=== PATIENT | female | born 1940 | race Caucasian/White ===

== ENCOUNTER 2016-09-29 21:02 | Inpatient (IN) | payer MEDICARE ==
[~2016-09-29 21:02] MED LIST: AMOXIL500 MG PO; ARICEPT10 M2 PO; ASPIRIN325 MG; BAYER CHEWABLE81 M2 PO; BISACODYL10 M1 PR; CARBIDOPA; CARBIDOPA-LE1 TAB.SA; CARBIDOPA-LEVO1 EA11 PO; CELEBREX200 M1 PO; CELEBREX200 MG PO; CIPRO250 MG PO; COUMADIN5 MG PO; DARVOCET-N 1001 TAB PO; FISH OIL1 CAP; FLEET ENEMA133 ML PR; HYDROCHLOROTHIA25 M1 PO; IMODIUM2 MG PO; LEVAQUIN750 M1 PO; MACROBID 100 M100 M1 PO; MIDODRINE HCL5 M1 PO; MILK OF MAGNESIA PO; MIRAPEX0.25 M1 PO; MIRAPEX0.25 MG; MIRAPEX0.5 MG; MIRAPEX0.5 MG PO; NAMENDA10 MG; NEURONTIN100 M1 PO; NIACIN100 MG; NORCO 5/325 TAB1 TAB; NYSTOP60 GM TP; OMEPRAZOLE20 M2 PO; OMEPRAZOLE20 M3 PO; SINEMET CR 50-1 EACH PO; SINEMET ER 50/21 TA1 PO; TYLENOL325 M2 PO; TYLENOL650 MG PO; ULTRAM50 M1 PO; VIBERZI75 MG PO; ZEGERID 40 MG C1 CAP; ZETIA10 MG; ZOFRAN ODT4 MG/UDTAB PO; ZOFRAN4 MG PO; [UNRECOGNIZED DRUG - OTHER]; [UNRECOGNIZED DRUG - OTHER]
[2016-09-29] MEDS ORDERED: CELEBREX200 M1 PO (21:30)
[2016-09-29] MEDS ORDERED: OMEPRAZOLE20 M3 PO (21:31)
[2016-09-29] MEDS ORDERED: ZYRTEC1010 PO (21:33)
[2016-09-29] MEDS ORDERED: VITAMIN D31000 UNI3 PO (21:35)
[2016-09-29] MEDS ORDERED: NUDEXTA PO (21:35)
[2016-09-29] MEDS ORDERED: ASPIRIN81 M1 PO (21:36)
[2016-09-29 22:13] LABS: URINE BILIRUBIN MODERATE (NEG); URINE BLOOD SMALL (NEG); URINE GLUCOSE (UA) NEGATIVE (NEG); URINE KETONE MODERATE (NEG); URINE LEUKOCYTE ESTERASE POSITIVE (NEG); URINE NITRITE POSITIVE (NEG); URINE PROTEIN SMALL (NEG); URINE SPECIFIC GRAVITY 1.025 (1.003-1.030)
[2016-09-29 22:16] LABS: BASO % 0.2 % (0-2); EOS % 0.7 % (0-7); HCT-HEMATOCRIT 37.9 % (34.0-49.0); HGB-HEMOGLOBIN 12.3 gm/dl (12.0-15.5); IMMATURE GRANULOCYTES ABSOLUTE 0.01 tho/cmm (0-0.03); IMMATURE GRANULOCYTES PERCENT 0.2 % (0-0.3); LYMPH % 20.1 % (20-45); LYMPH ABSOLUTE COUNT 1.2 tho/cmm (0.8-4.5); MCH (MEAN CORPUSCULAR HGB) 27.6 pg (28.0-32.0); MCHC MEAN CORPUSCULAR HGB CONC 32.5 % (32.0-36.0); MEAN PLATELET VOLUME 9.7 cmc (9.4-12.4); MONO % 8.5 % (0-12); MONOCYTE ABSOLUTE COUNT 0.5 tho/cmm (0.0-1.2); NEUTROPHIL ABSOLUTE COUNT 4.1 tho/cmm (1.6-8.0); NEUTROPHIL-AUTOMATED 4.1 tho/cmm (1.6-8.0); NEUTROPHILS % 70.3 % (40-80); PLATELET COUNT 174 tho/cmm (150-450); RED BLOOD COUNT 4.46 mil/cmm (4.00-5.20); RED CELL DISTRIBUTION WIDTH 13.9 % (12.4-16.4); WHITE BLOOD COUNT 5.9 tho/cmm (4.0-10.0)
[2016-09-29 22:24] LABS: URINE APPEARANCE CLOUDY; URINE COLOR YELLOW
[2016-09-29 22:27] LABS: URINE RBC 0-1 /[HPF] (0-5); URINE WBC 40-50 /[HPF] (0-5)
[2016-09-29 22:28] LABS: URINE BACTERIA 3+; URINE EPITHELIAL CELLS 0-1 /[HPF] (0-10)
[2016-09-29 22:38] LABS: ALB/GLOB RATIO 0.9 (0.8-2.0); ALBUMIN 3.5 g/dl (3.5-5.0); ALKALINE PHOSPHATASE 80 U/L (33-138); BILIRUBIN,TOTAL 0.5 mg/dl (0-1.5); BLOOD UREA NITROGEN 45 mg/dl (6-24); CARBON DIOXIDE-VENOUS 24 mmol/L (22-32); CHLORIDE 112 mmol/l (96-110); CREATININE 1.55 mg/dl (0.50-1.10); GLUCOSE 96 mg/dL (70-110); LIPASE 92 U/L (73-393); SODIUM 145 mmol/L (135-145); eGFR VALUE FOR BLACK 37 mL/Min
[2016-09-29 22:41] LABS: ANION GAP 14 mmol/L (0-20)
[2016-09-29 22:42] LABS: AST/SGOT 33 U/L (10-40); C-REACTIVE PROTEIN <0.3 mg/dl (0-0.9); CREATINE PHOSPHOKINASE (CPK) 127 U/L (21-215); POTASSIUM 5.3 mmol/L (3.7-5.1)
[2016-09-29 22:44] LABS: TSH-THYROID STIMULATING HORM. 1.01 uIU/ml (0.40-3.80)
[2016-09-29 22:50] LABS: ALT/SGPT <10 U/L (12-78)
[2016-09-30 06:00] LABS: BASO % 0.3 % (0-2); EOS % 1.8 % (0-7); EOSINOPHIL ABSOLUTE COUNT 0.1 tho/cmm (0.0-0.7); HCT-HEMATOCRIT 32.5 % (34.0-49.0); HGB-HEMOGLOBIN 10.4 gm/dl (12.0-15.5); LYMPH % 36.5 % (20-45); LYMPH ABSOLUTE COUNT 1.2 tho/cmm (0.8-4.5); MCV (MEAN CELL VOLUME) 84.4 fl (82.0-96.0); MEAN PLATELET VOLUME 9.4 cmc (9.4-12.4); MONOCYTE ABSOLUTE COUNT 0.3 tho/cmm (0.0-1.2); NEUTROPHIL ABSOLUTE COUNT 1.7 tho/cmm (1.6-8.0); NEUTROPHIL-AUTOMATED 1.7 tho/cmm (1.6-8.0); NEUTROPHILS % 53.4 % (40-80); PLATELET COUNT 143 tho/cmm (150-450); RED BLOOD COUNT 3.85 mil/cmm (4.00-5.20); RED CELL DISTRIBUTION WIDTH 13.6 % (12.4-16.4); WHITE BLOOD COUNT 3.3 tho/cmm (4.0-10.0)
[2016-09-30 06:07] LABS: ANION GAP 12 mmol/L (0-20); BLOOD UREA NITROGEN 42 mg/dl (6-24); CARBON DIOXIDE-VENOUS 23 mmol/L (22-32); CHLORIDE 114 mmol/l (96-110); CREATININE 1.14 mg/dl (0.50-1.10); GLUCOSE 91 mg/dL (70-110); SODIUM 145 mmol/L (135-145); eGFR VALUE FOR BLACK 53 mL/Min
[2016-09-30 06:09] LABS: POTASSIUM 3.7 mmol/L (3.7-5.1)
--- NOTE | 2016-09-30 12:30 | NUR ---
VIRTUAL CARE NOTE: PT RESTING ON BED, SEEMS CONFUSED STATES HAS BEEN WAITING FOR HELP, CALL PLACED TO FLOOR STAFF TO CHECK ON PT. PT DENIES FURTHER NEEDS.
[2016-10-01 06:54] LABS: HGB-HEMOGLOBIN 10.3 gm/dl (12.0-15.5); PLATELET COUNT 143 tho/cmm (150-450)
[2016-10-01 07:09] LABS: ANION GAP 12 mmol/L (0-20); BLOOD UREA NITROGEN 29 mg/dl (6-24); CARBON DIOXIDE-VENOUS 23 mmol/L (22-32); CHLORIDE 114 mmol/l (96-110); CREATININE 1.06 mg/dl (0.50-1.10); GLUCOSE 98 mg/dL (70-110); POTASSIUM 3.6 mmol/L (3.7-5.1); SODIUM 145 mmol/L (135-145); eGFR VALUE FOR BLACK 58 mL/Min
--- NOTE | 2016-10-01 21:14 | NUR ---
VN ROUNDING-PATIENT IS A LITTLE CONFUSED AT THIS TIME AND NOT ABLE TO HEAR THE VN VERY WELL. DEFERRED ROUNDING
[2016-10-02] MEDS ORDERED: MACROBID 100 M100 M1 PO (10:25)
[2016-10-02] MEDS ORDERED: STOP THE FOLLOWING: (10:27)
== END 2016-10-02 12:20 | disposition home health service (06) | DRG 683 ==
LOC: EDMED 21:02 → EMR2 23:55 → 5WD 09-30 01:22
PROVIDERS: Emergency Medicine; Family Medicine; Nurse Practitioner Acute Care; ADMIT Hospitalist
DX: N17.9 Acute kidney failure, unspecified (principal); N39.0 Urinary tract infection, site not specified; E46 Unspecified protein-calorie malnutrition; G31.83 Neurocognitive disorder with Lewy bodies; Z68.1 Body mass index [BMI] 19.9 or less, adult; E86.0 Dehydration; B96.20 Unspecified Escherichia coli [E. coli] as the cause of diseases classified elsewhere; Z79.82 Long term (current) use of aspirin; G89.29 Other chronic pain; M54.5 Low back pain; Z79.1 Long term (current) use of non-steroidal anti-inflammatories (NSAID); E78.5 Hyperlipidemia, unspecified; Z95.0 Presence of cardiac pacemaker; Z86.711 Personal history of pulmonary embolism; Z86.718 Personal history of other venous thrombosis and embolism; Z88.5 Allergy status to narcotic agent; F02.80 Dementia in other diseases classified elsewhere, unspecified severity, without behavioral disturbance, psychotic disturbance, mood disturbance, and anxiety
CPT/HCPCS: G8978-GP-CK; G8979-GP-CK; J1650; J2543; J7030; P9612

== ENCOUNTER 2016-10-08 20:20 | Observation (INO) | payer MEDICARE ==
[~2016-10-08 20:20] MED LIST changes: +ASPIRIN81 M1 PO; +NUDEXTA PO; +STOP THE FOLLOWING:; +VITAMIN D31000 UNI3 PO; +ZYRTEC1010 PO
[2016-10-08] MEDS ORDERED: MIDODRINE HCL5 M1 PO (21:14)
[2016-10-08] MEDS ORDERED: ULTRAM50 M1 PO (21:17)
[2016-10-08 22:19] LABS: GLUCOSE 95 mg/dl (65-120)
[2016-10-08 22:20] LABS: BASO % 0.1 % (0-2); EOS % 0.7 % (0-7); EOSINOPHIL ABSOLUTE COUNT 0.1 tho/cmm (0.0-0.7); HCT-HEMATOCRIT 35.2 % (34.0-49.0); HGB-HEMOGLOBIN 11.4 gm/dl (12.0-15.5); IMMATURE GRANULOCYTES ABSOLUTE 0.01 tho/cmm (0-0.03); IMMATURE GRANULOCYTES PERCENT 0.1 % (0-0.3); LYMPH % 10.6 % (20-45); LYMPH ABSOLUTE COUNT 0.9 tho/cmm (0.8-4.5); MCH (MEAN CORPUSCULAR HGB) 27.7 pg (28.0-32.0); MCHC MEAN CORPUSCULAR HGB CONC 32.4 % (32.0-36.0); MCV (MEAN CELL VOLUME) 85.4 fl (82.0-96.0); MEAN PLATELET VOLUME 9.1 cmc (9.4-12.4); MONO % 6.6 % (0-12); MONOCYTE ABSOLUTE COUNT 0.6 tho/cmm (0.0-1.2); NEUTROPHIL ABSOLUTE COUNT 6.9 tho/cmm (1.6-8.0); NEUTROPHIL-AUTOMATED 6.9 tho/cmm (1.6-8.0); NEUTROPHILS % 81.9 % (40-80); PLATELET COUNT 204 tho/cmm (150-450); RED BLOOD COUNT 4.12 mil/cmm (4.00-5.20); RED CELL DISTRIBUTION WIDTH 13.3 % (12.4-16.4); WHITE BLOOD COUNT 8.4 tho/cmm (4.0-10.0)
[2016-10-08 22:29] LABS: PROTHROMBIN TIME 11.2 SECONDS (9.0-13.6)
[2016-10-08 22:42] LABS: ALB/GLOB RATIO 0.8 (0.8-2.0); ALBUMIN 3.2 g/dl (3.5-5.0); ALKALINE PHOSPHATASE 72 U/L (33-138); ANION GAP 16 mmol/L (0-20); AST/SGOT 17 U/L (10-40); BILIRUBIN,TOTAL 0.4 mg/dl (0-1.5); BLOOD UREA NITROGEN 48 mg/dl (6-24); CALCIUM 9.1 mg/dl (8.5-10.5); CARBON DIOXIDE-VENOUS 25 mmol/L (22-32); CHLORIDE 108 mmol/l (96-110); CREATININE 0.96 mg/dl (0.50-1.10); MAGNESIUM 2.1 mg/dl (1.8-2.6); SODIUM 145 mmol/L (135-145); eGFR VALUE FOR BLACK 66 mL/Min
[2016-10-08 22:47] LABS: TSH-THYROID STIMULATING HORM. 0.37 uIU/ml (0.40-3.80)
[2016-10-08 22:48] LABS: ALT/SGPT <10 U/L (12-78); ESR-ERYTHROCYTE SED RATE 57 mm/hr (0-30)
[2016-10-08 23:15] LABS: PROCALCITONIN 0.05 ng/ml (0.05-0.09)
[2016-10-08 23:30] LABS: URINE BILIRUBIN NEGATIVE (NEG); URINE BLOOD SMALL (NEG); URINE GLUCOSE (UA) LARGE (NEG); URINE KETONE LARGE (NEG); URINE LEUKOCYTE ESTERASE NEGATIVE (NEG); URINE NITRITE NEGATIVE (NEG); URINE PROTEIN SMALL (NEG)
[2016-10-08 23:43] LABS: URINE APPEARANCE HAZY; URINE COLOR YELLOW
[2016-10-08 23:48] LABS: URINE AMORPHOUS 1+; URINE EPITHELIAL CELLS RARE /[HPF] (0-10); URINE MUCUS 2+; URINE RBC RARE /[HPF] (0-5); URINE WBC 0-3 /[HPF] (0-5)
[2016-10-09 00:49] LABS: C-REACTIVE PROTEIN 3.1 mg/dl (0-0.9)
[2016-10-09 01:59] LABS: BASO % 0.1 % (0-2); EOSINOPHIL ABSOLUTE COUNT 0.1 tho/cmm (0.0-0.7); HCT-HEMATOCRIT 32.9 % (34.0-49.0); HGB-HEMOGLOBIN 10.6 gm/dl (12.0-15.5); IMMATURE GRANULOCYTES ABSOLUTE 0.03 tho/cmm (0-0.03); IMMATURE GRANULOCYTES PERCENT 0.4 % (0-0.3); LYMPH % 11.3 % (20-45); LYMPH ABSOLUTE COUNT 0.9 tho/cmm (0.8-4.5); MCH (MEAN CORPUSCULAR HGB) 27.6 pg (28.0-32.0); MCHC MEAN CORPUSCULAR HGB CONC 32.2 % (32.0-36.0); MCV (MEAN CELL VOLUME) 85.7 fl (82.0-96.0); MEAN PLATELET VOLUME 9.9 cmc (9.4-12.4); MONO % 8.4 % (0-12); MONOCYTE ABSOLUTE COUNT 0.7 tho/cmm (0.0-1.2); NEUTROPHIL ABSOLUTE COUNT 6.4 tho/cmm (1.6-8.0); NEUTROPHIL-AUTOMATED 6.4 tho/cmm (1.6-8.0); NEUTROPHILS % 78.8 % (40-80); PLATELET COUNT 165 tho/cmm (150-450); RED BLOOD COUNT 3.84 mil/cmm (4.00-5.20); RED CELL DISTRIBUTION WIDTH 13.4 % (12.4-16.4); WHITE BLOOD COUNT 8.1 tho/cmm (4.0-10.0)
[2016-10-09 02:09] LABS: ANION GAP 10 mmol/L (0-20); BLOOD UREA NITROGEN 41 mg/dl (6-24); CALCIUM 8.3 mg/dl (8.5-10.5); CARBON DIOXIDE-VENOUS 27 mmol/L (22-32); CHLORIDE 110 mmol/l (96-110); CREATININE 0.84 mg/dl (0.50-1.10); GLUCOSE 117 mg/dL (70-110); POTASSIUM 3.5 mmol/L (3.7-5.1); SODIUM 143 mmol/L (135-145); eGFR VALUE FOR BLACK 77 mL/Min
[2016-10-10 05:50] LABS: HGB-HEMOGLOBIN 10.3 gm/dl (12.0-15.5); PLATELET COUNT 167 tho/cmm (150-450)
[2016-10-11] MEDS ORDERED: NYSTATIN1 EA10 TOP (12:03)
[2016-10-11] MEDS ORDERED: OXYCODONE H5 MG/5 M2 SL (12:06)
[2016-10-11] MEDS ORDERED: ATIVAN PO/SL (12:10)
== END 2016-10-11 13:45 | disposition other institution (70) ==
LOC: EDMED 20:20 → EMR2 10-09 00:28 → 5WE 10-09 00:53
PROVIDERS: Emergency Medicine; Hospitalist; ADMIT Family Medicine
DX: G20 Parkinson's disease (principal); F03.90 Unspecified dementia, unspecified severity, without behavioral disturbance, psychotic disturbance, mood disturbance, and anxiety; Z51.5 Encounter for palliative care; E44.1 Mild protein-calorie malnutrition; B37.2 Candidiasis of skin and nail; G89.29 Other chronic pain; G54.9 Nerve root and plexus disorder, unspecified; E86.0 Dehydration; R63.0 Anorexia; K21.9 Gastro-esophageal reflux disease without esophagitis; E78.5 Hyperlipidemia, unspecified; Z79.82 Long term (current) use of aspirin; Z79.899 Other long term (current) drug therapy; Z88.5 Allergy status to narcotic agent; Z86.718 Personal history of other venous thrombosis and embolism; Z86.711 Personal history of pulmonary embolism; Z87.01 Personal history of pneumonia (recurrent); Z90.49 Acquired absence of other specified parts of digestive tract; Z90.710 Acquired absence of both cervix and uterus; Z96.641 Presence of right artificial hip joint; Z95.0 Presence of cardiac pacemaker; Z98.890 Other specified postprocedural states
CPT/HCPCS: G0378; G8978-GP-CM; G8979-GP-CK; G8980-GP-CM; G8987-GO-CL; G8988-GO-CK; G8989-GO-CK; J0696; J1650; J7030; P9612